=== PATIENT | male | born 1980 | race African-American/Black ===

== ENCOUNTER 2016-08-27 13:32 | Emergency (ER) | payer SELFPAY ==
[~2016-08-27] VITALS: Ht 170.2 cm; Wt 69.5 kg
[~2016-08-27 13:32] MED LIST: IBUP-232 PO
[2016-08-27 13:35] VITALS: BP 124/73; PULSE 90; RESP 20; TEMP 98.2; O2SAT 98
--- NOTE | 2016-08-27 13:38 | PD ---
Physical Exam Time Seen by Provider: 13:36 Narrative 35 year old male Complaining of R ear pain, tender anterior cervical lymph nodes 3 days. VSS. Seen at triage desk. Awaiting bed placement. Data Data Last Documented VS Vital Signs Date Time Temp Pulse Resp B/P Pulse Ox O2 Delivery O2 Flow Rate FiO2 08/27/16 13:35 98.2 90 20 124/73 98 Room Air [facility] Medical Record Reviewed: Yes Supervised Visit with BRYANT: Yes Todd Jimenez Aug 27, 2016 13:37
[2016-08-27] MEDS ORDERED: AMOX500C PO (14:22)
[2016-08-27] MEDS ORDERED: PERI0.126 SWISH-SPIT (14:22)
[2016-08-27] MEDS ORDERED: IBUP800T23 PO (14:22)
--- NOTE | 2016-08-27 14:23 | PD ---
HPI Chief Complaint: ENT Complaint Time Seen by Provider: 14:21 Travel History International Travel<30 days: No Contact w/Intl Traveler<30days: No Traveled to known affect area: No History of Present Illness HPI 35-year-old male presents to the emergency Department with complaint of right upper dental pain and right ear pain 3 days. Denies fever, chills, nausea, vomiting. Denies nasal congestion, cough, sore throat. Has been taking ibuprofen with minimal relief of pain. No known allergies. No other modifying factors or associated signs and symptoms. PFSH Past Medical History Asthma: Yes ([facility] DOES NOT TAKE ANYTHING FOR ASTHMA.) Diminished Hearing: No Hepatitis: No Respiratory: Yes (EXPOSED TO TB IN [facility]/TOOK MED FOR 2 MONTHS) Past Surgical History Tonsillectomy: Yes Social History Alcohol Use: No Tobacco Use: Yes (pack a day) Substance Use: Yes (MARAJUANA EVERY NOW AND AGAIN) Allergies-Medications (Allergen,Severity, Reaction): Coded Allergies: No Known Allergies (Verified , 08/27/16) Reported Meds & Prescriptions Reported Meds & Active Scripts Active Ibuprofen 800 Mg Tab 800 Mg PO Q6HR PRN Peridex Liq (Chlorhexidine Gluconate (Mouth) Liq) 0.12% Soln 15 Ml SWISH-SPIT BID 10 Days Amoxicillin 500 Mg Cap 500 Mg PO BID 10 Days Review of Systems Except as stated in HPI: all other systems reviewed are Neg Physical Exam Narrative GENERAL: Well-nourished, well-developed patient, in no acute distress; afebrile , nontoxic-appearing SKIN: Warm and dry. HEAD: Atraumatic. Normocephalic. No facial edema, erythema, tenderness on palpation. No lymphadenopathy. EYES: Pupils equal and round. No scleral icterus. No injection or drainage. ENT: Mucosa pink and moist. No erythema or exudates. No uvular edema. No uvular , palatal, or tonsillar deviation. Airway patent. EARS: Bilateral pinnae and external canals appear within normal limits. Bilateral tympanic membranes without erythema, dullness or perforation. MOUTH: Mucous membranes moist, no lesions, tongue and gums appear normal. Right lower tooth #31 with large dental carry and decay; with tenderness on palpation; surrounding gingiva is without erythema, edema, drainage; no obvious abscess noted. NECK: Trachea midline. No lymphadenopathy. CARDIOVASCULAR: Regular rate. RESPIRATORY: No accessory muscle use. GASTROINTESTINAL: Flat. MUSCULOSKELETAL: No obvious deformities. No clubbing. No cyanosis. No edema. NEUROLOGICAL: Awake and alert. Oriented 3. No obvious cranial nerve deficits. Motor grossly within normal limits. Normal speech. PSYCHIATRIC: Appropriate mood and affect; insight and judgment normal. Data Data Last Documented VS Vital Signs Date Time Temp Pulse Resp B/P Pulse Ox O2 Delivery O2 Flow Rate FiO2 08/27/16 13:35 98.2 90 20 124/73 98 Room Air MDM Medical Decision Making Medical Screen Exam Complete: Yes Emergency Medical Condition: Yes Medical Record Reviewed: Yes Differential Diagnosis Otitis media, cerumen impaction, perforation, dentalgia, dental abscess Narrative Course 35-year-old male physical exam consistent with right lower tooth #30 one didn't dentalgia. No obvious abscess noted. No facial edema or erythema. Patient is afebrile and nontoxic-appearing. He denies fever, chills, nausea, vomiting. Emergency dental information sheet provided for follow-up. Amoxicillin, Peridex mouth rinse, ibuprofen prescribed for home. Patient verbalizes understanding and agreement with treatment plan. Patient is medically cleared and stable for discharge. Discussed reasons to return to the emergency department. Instructed patient to follow up with primary care provider. Patient agrees with treatment plan. The patients vital signs are stable and the patient is stable for outpatient follow-up and treatment. Patient discharged home, stable and in no acute distress. Diagnosis Primary Impression: Dentalgia Referrals: Dentist Primary Care Physician Patient Instructions: Dental Abscess (ED), Dental Caries (ED), General Instructions, Toothache (ED) Departure Forms: Tests/Procedures, Work Release Enter return to work date: Aug 28, 2016 Additional Instructions: Complete full course of antibiotics Ibuprofen as directed and as needed to reduce pain and inflammation Use Peridex as directed for oral hygiene Warm compresses to the affected area Follow-up with dentist Follow-up with primary care provider Return to emergency department immediately with worsening of symptoms Med/Other Pt SpecificInfo: Prescription(s) given Scripts Ibuprofen 800 Mg [id number] Mg PO Q6HR PRN (PAIN) #30 TAB Ref 0 Prov:Rayna Rodriguez [employer] 08/27/16 Chlorhexidine Gluconate (Mouth) Liq (Peridex Liq)0.12% Soln15 Ml SWISH-SPIT BID 10 Days Ref 0 Prov:Rayna Rodriguez 08/27/16 Amoxicillin 500 Mg [id number] Mg PO BID 10 Days Ref 0 Prov:Rayna Rodriguez 08/27/16 Disposition: 01 DISCHARGE HOME Condition: Stable Rayna Rodriguez Aug 27, 2016 14:23
== END 2016-08-27 14:42 | disposition home or self-care (01) ==
LOC: NEPK 13:32
DX: K08.89 Other specified disorders of teeth and supporting structures (principal); H92.01 Otalgia, right ear; F17.200 Nicotine dependence, unspecified, uncomplicated; Z87.09 Personal history of other diseases of the respiratory system
CPT/HCPCS: 99282